=== PATIENT | female | born 1965 | race Caucasian/White ===

== ENCOUNTER 2018-11-12 09:34 | Day surgery (SDC) | payer OTHER ==
[2018-11-12 10:44] VITALS: BMI 34.7
[2018-11-12 14:08] VITALS: BP 131/70; PULSE 67; TEMP 98
--- NOTE | 2018-11-15 18:02 | PATH ---
Surgical Pathology Report Patient Name: ZION NEAL [facility]. Rec. #: [id number] /Age/Gender: 1965 (Age: 53) / F Account: [id number] Location: [facility]-ENDOSCOPY Taken: 11/12/2018 Received: 11/12/2018 Reported: 11/15/2018 Physicians: Jaki Gonzalez M.D. Specimen(s) Received A: GASTRIC BYPASS ANASTOMOSIS B: GASTRIC POUCH C: GE JUNCTION D: HEPATIC FLEXURE POLYP E: CECUM POLYP Clinical History Anemia, history of colon polyps, family history colon cancer Postoperative diagnosis: Hiatal hernia, normal gastric bypass anastomosis, colon polyps, hemorrhoids Final Diagnosis A. GASTRIC BYPASS ANASTOMOSIS, BIOPSY: JUNCTIONAL (GASTRIC AND SMALL BOWEL) MUCOSA WITH MILD CHRONIC INFLAMMATION. IMMUNOHISTOCHEMICAL STAIN FOR H. PYLORI IS NEGATIVE. B. GASTRIC POUCH, BIOPSY: GASTRIC MUCOSA WITH MILD CHRONIC GASTRITIS. IMMUNOHISTOCHEMICAL STAIN FOR H. PYLORI IS NEGATIVE. C. GE JUNCTION, BIOPSY: SQUAMOUS MUCOSA WITH VASCULAR CONGESTION AND CHANGES OF MILD REFLUX TYPE ESOPHAGITIS. NO COLUMNAR MUCOSA, INTESTINAL METAPLASIA, OR DYSPLASIA IDENTIFIED. D. COLON, HEPATIC FLEXURE, POLYPS, BIOPSY AND POLYPECTOMY: TUBULAR ADENOMA(S). E. CECUM, POLYP, POLYPECTOMY: TUBULAR ADENOMA. Electronically Signed Janet Robles M.D. Gross Description A. Received in formalin, labeled "gastric bypass anastomosis" are 5 ignacio, irregular portions of soft tissue ranging from 0.2-0.4 cm. in greatest dimension. The specimens are submitted in toto in one cassette. B. Received in formalin, labeled "gastric pouch biopsy" are 2 ignacio, irregular portions of soft tissue averaging 0.2 cm. in greatest dimension. The specimens are submitted in toto in one cassette. C. Received in formalin, labeled "GE junction biopsy" are 2 ignacio, irregular portions of soft tissue averaging 0.4 cm. in greatest dimension. The specimens are submitted in toto in one cassette. D. Received in formalin labeled "hepatic flexure polyps," is a 0.9 x 0.7 x 0.2 cm aggregate of ignacio soft tissue fragments. The formalin is filtered and the specimen is entirely submitted in one cassette. E. Received in formalin, labeled "cecum polyp" is a ignacio, irregular portion of soft tissue measuring 0.7 cm. in greatest dimension. The specimen is submitted in toto in one cassette. 11/12/2018 [facility]
== END 2018-11-12 13:30 | disposition home or self-care (01) ==
LOC: JASU-ENDO 09:34
PROVIDERS: ATTEND Internal Medicine Gastroenterology
PROC: 0DBL8ZX Excision of Transverse Colon, Via Natural or Artificial Opening Endoscopic, Diagnostic (ICD-10-PCS; 2018-11-12)
PROC: 0DB68ZX Excision of Stomach, Via Natural or Artificial Opening Endoscopic, Diagnostic (ICD-10-PCS; 2018-11-12)
PROC: 0DBH8ZX Excision of Cecum, Via Natural or Artificial Opening Endoscopic, Diagnostic (ICD-10-PCS; principal; 2018-11-12 10:15)
DX: Z12.11 Encounter for screening for malignant neoplasm of colon (principal); D50.9 Iron deficiency anemia, unspecified; D12.0 Benign neoplasm of cecum; D12.3 Benign neoplasm of transverse colon; K64.8 Other hemorrhoids; K44.9 Diaphragmatic hernia without obstruction or gangrene; Z98.84 Bariatric surgery status; Z86.010 Personal history of colon polyps; Z80.0 Family history of malignant neoplasm of digestive organs
CPT/HCPCS: 88305-TC; 88342-TC